=== PATIENT | female | born 1985 | race African-American/Black ===

== ENCOUNTER 2016-11-11 14:23 | Emergency (ER) | payer OTHER ==
[~2016-11-11] VITALS: Ht 175.3 cm; Wt 114.3 kg
[~2016-11-11 14:23] MED LIST: ACYCLOVIR200 MG PO; CIPROFLOXACIN H10 ML LEFT EYE; CONCERTA36 MG PO; GARAMYCIN3.5 G1 LEFT EYE; KLONOPIN0.5 M1 PO; KLONOPIN1 MG PO; LAMICTAL100 MG PO; LAMICTAL25 MG PO; OXYCODONE-APAP1 EACH PO; PROZAC20 MG PO; Proventil,Ventolin H IH; TRAMADOL HCL50 MG PO; TRILAFON4 MG PO; VENTOLIN HFA18 GM IH; VICODIN PO; VIIBRYD40 MG PO
[2016-11-11 15:18] LABS: EOSINOPHIL (%) 2.5 % (0-5); EOSINOPHIL COUNT 0.2 K/uL (0-0.3); HEMATOCRIT 37.4 % (36.0-46.0); IMMATURE GRANULOCYTE (%) 0.2 % (0.0-0.7); INSTRUMENT ABS NEUTROPHIL CT 4.2 K/uL; LYMPHOCYTE COUNT 3.2 K/uL (1.0-2.8); MCH 28.4 PG (29.0-34.0); MCHC 33.2 G/DL (30.0-36.0); MCV 85.8 FL (83-99); MEAN PLAT.VOLUME 9.8 uM^3 (9.5-12.4); MONOCYTE (%) 7.6 % (3-12); MONOCYTE COUNT 0.6 K/uL (0-0.8); NEUTROPHIL COUNT 4.2 K/uL (1.8-6.4); PLATELET COUNT 401 K/uL (156-360); RED BLOOD COUNT 4.36 M/uL (3.80-5.20); WHITE BLOOD COUNT 8.2 K/uL (4.1-10.2)
[2016-11-11 15:27] LABS: CHLORIDE 109 mEq/L (99-109); POTASSIUM 4.1 mEq/L (3.7-5.4); SODIUM 141 mEq/L (136-147)
[2016-11-11 15:29] LABS: GLUCOSE 106 mg/dL (70-99)
[2016-11-11 15:30] LABS: ANION GAP 6 MEQ/L (2-14)
[2016-11-11 15:31] LABS: TOTAL BILIRUBIN 0.2 mg/dL (0.0-1.0)
[2016-11-11 15:33] LABS: ALKALINE PHOSPHATASE 59 IU/L (3-129); GFR ESTIMATE (CALCULATED) > 59 mL/min/
[2016-11-11 15:34] LABS: UREA NITROGEN (BUN) 9 mg/dL (9-23)
[2016-11-11 15:41] LABS: TROP-I INTERPRETATION NEGATIVE; TROPONIN-I < 0.01 ng/mL (0.0-0.30)
[2016-11-11] MEDS ORDERED: VENTOLIN HFA18 GM IH (16:19)
[2016-11-11] MEDS ORDERED: PRILOSEC OTC20 MG PO (17:00)
[2016-11-11 17:34] VITALS: BP 131/94
== END 2016-11-11 17:30 | disposition home or self-care (01) ==
LOC: EME 14:23
PROVIDERS: Emergency Medicine
DX: K21.9 Gastro-esophageal reflux disease without esophagitis (principal); R07.9 Chest pain, unspecified; Z87.891 Personal history of nicotine dependence; Z82.49 Family history of ischemic heart disease and other diseases of the circulatory system
CPT/HCPCS: 71010; 80053; 84484; 85025; 93005; 99281; 99285

== ENCOUNTER 2016-11-29 10:47 | Emergency (ER) | payer OTHER ==
[~2016-11-29] VITALS: Ht 175.3 cm; Wt 118.8 kg
[~2016-11-29 10:47] MED LIST changes: +PRILOSEC OTC20 MG PO
[2016-11-29 13:34] LABS: INFLUENZA A VIRAL ANTIGEN NEGATIVE; INFLUENZA B VIRAL ANTIGEN POSITIVE
[2016-11-29] MEDS ORDERED: TESSALON PERLE100 MG PO (13:50)
[2016-11-29] MEDS ORDERED: NAPROSYN500 MG PO (13:50)
[2016-11-29] MEDS ORDERED: ROBITUSSIN NIG118 ML PO (13:50)
[2016-11-29] MEDS ORDERED: MUCUS ER600 MG PO (13:50)
[2016-11-29] MEDS ORDERED: FLONASE16 G1 BOTH NARES (13:50)
[2016-11-29 14:05] VITALS: BP 131/74
== END 2016-11-29 14:07 | disposition home or self-care (01) ==
LOC: EME 10:47
PROVIDERS: Nurse Practitioner Family
DX: J10.1 Influenza due to other identified influenza virus with other respiratory manifestations (principal); J45.909 Unspecified asthma, uncomplicated; F17.200 Nicotine dependence, unspecified, uncomplicated
CPT/HCPCS: 87502; 99281; 99284

== ENCOUNTER 2017-05-29 08:03 | Emergency (ER) | payer OTHER ==
[~2017-05-29] VITALS: Ht 175.3 cm; Wt 120.9 kg
[~2017-05-29 08:03] MED LIST changes: +FLONASE16 G1 BOTH NARES; +MUCUS ER600 MG PO; +NAPROSYN500 MG PO; +ROBITUSSIN NIG118 ML PO; +TESSALON PERLE100 MG PO
[2017-05-29] MEDS ORDERED: ZITHROMAX Z-PA250 MG PO (08:50)
[2017-05-29 09:04] VITALS: BP 145/87
== END 2017-05-29 09:05 | disposition home or self-care (01) ==
LOC: EME 08:03
DX: J02.8 Acute pharyngitis due to other specified organisms (principal); R60.0 Localized edema; F17.200 Nicotine dependence, unspecified, uncomplicated
CPT/HCPCS: 99281; 99283